=== PATIENT | female | born 1955 | race Caucasian/White ===

== ENCOUNTER 2016-09-17 09:08 | Emergency (ER) | payer BC ==
[~2016-09-17] VITALS: Ht 165.1 cm; Wt 70.0 kg
[2016-09-17] MEDS ORDERED: SODIUM CHLORIDE FLUSH 10 ML SYR IV PRN (09:30)
[2016-09-17] MEDS ORDERED: ALBUTEROL/IPRATROPIUM 3MG-0.5MG/3ML (DUONEB) NEB VIAL INH ONE (09:30)
[2016-09-17] MEDS ORDERED: SODIUM CHLORIDE FLUSH 3 ML SYR IV PRN (09:30)
[2016-09-17] MEDS ORDERED: methylPREDNISolone 125 MG (Solu-MEDROL) VIAL IV ONE (09:35)
[2016-09-17] MEDS ORDERED: NS IV 500 ML 500 ML IV SCH (09:35)
[2016-09-17 09:45] LABS: BASOPHILS % (AUTO) 1 % (0-2); EOSINOPHILS # (AUTO) 0.2 10^3uL; EOSINOPHILS % (AUTO) 3 % (0-4); LYMPHOCYTES # (AUTO) 1.7 X10^3; MEAN CORPUSCULAR HEMOGLOBIN 31.1 PG (26.0-34.0); MEAN CORPUSCULAR HGB CONC 35.4 g/dL (31.0-37.0); MEAN CORPUSCULAR VOLUME 88 FL (80-100); MEAN PLATELET VOLUME 9.8 FL (6.0-9.5); MONOCYTES # (AUTO) 0.5 X10^3; MONOCYTES % (AUTO) 9 % (3-11); NEUTROPHILS # (AUTO) 3.4 X10^3; NEUTROPHILS % (AUTO) 58 % (51-67); PLATELET COUNT 291 10^3uL (150-450); WHITE BLOOD COUNT 5.95 10^3uL (4.0-11.0)
[2016-09-17] MEDS ORDERED: ALBUTEROL 0.083% NEB SOLUTION 2.5 MG/3 ML VIAL INH ONE ×2 (09:50→09:53)
--- NOTE | 2016-09-17 09:50 | NUR ---
RT DOES 2ND RT TX CONTINUOUS FROM FIRST TX AFTER TALKING WITH DR CABRERA. CL
[2016-09-17 09:56] LABS: ALBUMIN 4.2 g/dL (3.4-5.0); ANION GAP 15.7 MEQ/L (3-15); TOTAL PROTEIN 7.1 g/dL (6.4-8.5)
[2016-09-17 11:23] VITALS: BP 118/58
== END 2016-09-17 11:36 | disposition home or self-care (01) ==
LOC: ED 09:10
DX: J98.8 Other specified respiratory disorders (principal); J44.9 Chronic obstructive pulmonary disease, unspecified; F17.219 Nicotine dependence, cigarettes, with unspecified nicotine-induced disorders
CPT/HCPCS: 36415; 71020; 80053; 85025; 85379; 86140; 87486; 87581; 87633; 87798; 94640; 96361; 96374; 99284; J2930; J7040; 99283

== ENCOUNTER 2016-11-04 00:17 | Emergency (ER) | payer BC ==
[~2016-11-04] VITALS: Ht 165.1 cm; Wt 74.2 kg
[~2016-11-04 00:17] MED LIST: ALBU8.5H4 INH; ALPR.25T PO; ASPI-345 PO; ATOR20TA PO; CITA20TA12 PO; DOXY-182 PO; FAMO-119 PO; FAMO40TA72 PO; FLUT1DIS3 INH; HYDR-3702 PO; HYDR-3754 PO; METH4TAB27 PO; OMEP20CA12 PO; ONDAN4ODT PO; PRED20TA PO; SERT100T PO; SERT100T8 PO; SINGULAR PO; SUCR1TAB29 PO
--- NOTE | 2016-11-04 00:18 | NUR ---
Pt presents to ER ambulatory with c/o right knee pain after falling this afternoon. Pt reports taking Ibuprofen and using ice but pain has become unbearable. Pt also has small abrasion on right wrist. Pt admitted to room 7.
--- OUTSIDE RECORDS SUMMARY | 2016-11-04 00:22 | XMS REPORT | Continuity of Care Document ---
Author Author [facility] Organization [facility] Address Unknown Phone Unavailable Support Name Relationship Address Phone NINA BURGESS MD Caregiver [address] [place] [address] GADIEL SAMSON Next Of Kin [place], [place] [address] Insurance Providers Payer Name Policy Number Subscriber Name Relationship [employer] [id number] Ysabel Tellez 19 Self / Same As Patient Problems Medical Problems Problem Onset Date Status Abdominal pain 08/29/2012 Active Nausea 08/29/2012 Active Microscopic hematuria 04/17/2013 Active Gastritis 09/03/2013 Resolved Cataract of left eye Unknown Active Medications Medication Dose Route Sig Days/Qty Instructions Order Date Discontinued Date Status Citalopram Hydrobromide 20 Mg ORAL DAILY 08/29/12 Active [Singular] 10 Mg ORAL DAILY 08/29/12 Active Aspirin 81 Mg ORAL DAILY 08/29/12 Active Fluticasone/Salmeterol 1 Puff RESPIRATORY (INHALATION) TWICE A DAY Active Albuterol Sulfate 2 Puff RESPIRATORY (INHALATION) NEEDED 08/29/12 Active Ondansetron Hcl 1 Tab ORAL EVERY 6 HOURS PRN 12 Qty 08/29/12 11/18/14 Discontinued Famotidine 1 Tab ORAL TWICE A DAY 12 Qty 08/29/12 11/18/14 Discontinued Hydrocodone Bit/Acetaminophen 1 Tab ORAL Q 4H PRN 10 Qty Pain 04/17/13 11/18/14 Discontinued Ondansetron Hcl 4 Mg ORAL EVERY 4HRS PRN 10 Qty 09/03/13 11/18/14 Discontinued Acetaminophen/Hydrocodone Bitart 1 Each ORAL EVERY 4HRS PRN 15 Qty 11/18/14 Discontinued Sucralfate 1 Gm ORAL 4X DAY BEFORE MEALS/AT BEDTIME 10 Days 09/03/13 11/18/14 Discontinued Famotidine 20 Mg ORAL TWICE A DAY 15 Days 09/03/13 11/18/14 Discontinued Social History No social history. Hospital Discharge Instructions No hospital discharge instructions. Plan of Care No plan of care. Functional Status No functional status results. Allergies, Adverse Reactions, Alerts Allergen Type Severity Reaction Status Last Updated Meperidine HCl Allergy Active 08/29/12 Sulfa(Sulfonamide Antibiotics) Allergy Active 08/29/12 Immunizations No immunization records. Vital Signs Acute Vital Signs Vital Response Date/Time Temperature (Fahrenheit) 98.0 Pulse 80 bpm Respirations 18 Height 5 ft 4 in Weight 152 lb Body Mass Index 26.1 kg/m^2 Results Test Source Date Result Interp. Ref. Range Comments Alanine Aminotransferase (ALT/SGPT) September 03, 2013 8:50am 24 U/L L 30- 65 Collected by nurse? N Albumin September 03, 2013 8:50am 4.2 G/DL N 3.4-5.0 Collected by nurse? N Albumin/Globulin Ratio September 03, 2013 8:50am 1.312 N 1.1-1.8 Collected by nurse? N Alkaline Phosphatase September 03, 2013 8:50am 68 U/L N 38-126 Collected by nurse? N Amylase Level September 03, 2013 8:50am 67 U/L N 25-115 Collected by nurse? N Aspartate Amino Transf (AST/SGOT) September 03, 2013 8:50am 28 U/L N 15- 37 Collected by nurse? N BUN/Creatinine Ratio September 03, 2013 8:50am 16 N 10-20 Collected by nurse? N Basophils # (Auto) September 03, 2013 8:50am 0.0 10^3/uL Collected by nurse? N Basophils (%) (Auto) September 03, 2013 8:50am 0 % N 0-2 Collected by nurse? N Blood Urea Nitrogen September 03, 2013 8:50am 11 MG/DL N 7-18 Collected by nurse? N Calcium Level September 03, 2013 8:50am 9.0 MG/DL N 8.8-10.8 Collected by nurse? N Calculated Osmolality September 03, 2013 8:50am 280 MOSM/L N 280-300 Collected by nurse? N Carbon Dioxide Level September 03, 2013 8:50am 30 MMOL/L H 22-29 Collected by nurse? N Chloride Level September 03, 2013 8:50am 106 MMOL/L N 98-108 Collected by nurse? N Creatinine September 03, 2013 8:50am 0.70 mg/dL N 0.6-1.2 Collected by nurse? N Eosinophils # (Auto) September 03, 2013 8:50am 0.3 10^3/uL Collected by nurse? N Eosinophils (%) (Auto) September 03, 2013 8:50am 3 % N 0-4 Collected by nurse? N Glucose Level September 03, 2013 8:50am 107 MG/DL DN 70-110 Collected by nurse? N Hematocrit September 03, 2013 8:50am 42.50 % N 35.00-45.00 Collected by nurse? N Hemoglobin September 03, 2013 8:50am 14.7 g/dL N 12.0-15.5 Collected by nurse? N Lipase September 03, 2013 8:50am 59 U/L N 23-300 Collected by nurse? N Lymphocytes # (Auto) September 03, 2013 8:50am 2.1 X 10^3 Collected by nurse? N Lymphocytes (%) (Auto) September 03, 2013 8:50am 27 % N 20-46 Collected by nurse? N Mean Corpuscular Hemoglobin September 03, 2013 8:50am 31.7 PG N 26.0-34.0 Collected by nurse? N Mean Corpuscular Hemoglobin Concent September 03, 2013 8:50am 34.6 g/dL N 31.0-37.0 Collected by nurse? N Mean Corpuscular Volume September 03, 2013 8:50am 92 FL N 80-100 Collected by nurse? N Mean Platelet Volume September 03, 2013 8:50am 9.7 FL H 6.0-9.5 Collected by nurse? N Monocytes # (Auto) September 03, 2013 8:50am 0.5 X 10^3 Collected by nurse? N Monocytes (%) (Auto) September 03, 2013 8:50am 7 % N 3-11 Collected by nurse? N Neutrophils # (Auto) September 03, 2013 8:50am 4.7 X 10^3 Collected by nurse? N Neutrophils (%) (Auto) September 03, 2013 8:50am 62 % N 51-67 Collected by nurse? N Platelet Count September 03, 2013 8:50am 304 10^3/uL N 150-450 Collected by nurse? N Potassium Level September 03, 2013 8:50am 4.1 MMOL/L N 3.5-5.1 Collected by nurse? N Red Blood Count September 03, 2013 8:50am 4.64 10^6/uL N 4.00-5.00 Collected by nurse? N Red Cell Distribution Width September 03, 2013 8:50am 12.1 % N 11.8-15.6 Collected by nurse? N Sodium Level September 03, 2013 8:50am 145 MMOL/L DN 135-150 Collected by nurse? N Total Bilirubin September 03, 2013 8:50am 0.9 MG/DL DN 0.1-1.0 Collected by nurse? N Total Protein September 03, 2013 8:50am 7.4 G/DL N 6.4-8.5 Collected by nurse? N Troponin I September 03, 2013 8:50am < 0.012 ng/mL 0.010-0.080 Collected by nurse? N Urine Bacteria September 03, 2013 8:50am None seen /HPF Collected by nurse? NUrine collection method Clean Catch Urine Bilirubin September 03, 2013 8:50am Negative Negative Collected by nurse? NUrine collection method Clean Catch Urine Blood September 03, 2013 8:50am 2+ H Negative Collected by nurse? NUrine collection method Clean Catch Urine Clarity September 03, 2013 8:50am Clear Collected by nurse? NUrine collection method Clean Catch Urine Collection Type September 03, 2013 8:50am Clean catch Collected by nurse? NUrine collection method Clean Catch Urine Color September 03, 2013 8:50am Yellow Collected by nurse? NUrine collection method Clean Catch Urine Glucose (UA) September 03, 2013 8:50am Negative Negative Collected by nurse? NUrine collection method Clean Catch Urine Ketones September 03, 2013 8:50am Negative Negative Collected by nurse? NUrine collection method Clean Catch Urine Leukocyte Esterase September 03, 2013 8:50am Negative Negative Collected by nurse? NUrine collection method Clean Catch Urine Mucus April 17, 2013 4:20pm 1+ Urine collection method Clean Catch Urine Nitrite September 03, 2013 8:50am Negative Negative Collected by nurse? NUrine collection method Clean Catch Urine Protein September 03, 2013 8:50am Negative Negative Collected by nurse? NUrine collection method Clean Catch Urine RBC September 03, 2013 8:50am 5-10 /HPF H Collected by nurse? NUrine collection method Clean Catch Urine Specific [place] September 03, 2013 8:50am 1.025 1.005-1.030 Collected by nurse? NUrine collection method Clean Catch Urine Squamous Epithelial Cells September 03, 2013 8:50am 2-5 /LPF Collected by nurse? NUrine collection method Clean Catch Urine Urobilinogen September 03, 2013 8:50am 1.0 mg/dL 0.2-1.0 Collected by nurse? NUrine collection method Clean Catch Urine WBC September 03, 2013 8:50am None seen /HPF Collected by nurse ? NUrine collection method Clean Catch Urine pH September 03, 2013 8:50am 6.0 5.0 - 8.0 Collected by nurse? NUrine collection method Clean Catch White Blood Count September 03, 2013 8:50am 7.64 10^3/uL N 4.0-11.0 Collected by nurse? N Volume Urine Centrifuged September 03, 2013 8:50am 10 ml Collected by nurse? NUrine collection method Clean Catch Estimat Glomerular Filtration Rate September 03, 2013 8:50am 104.4 Collected by nurse? N Estimated GFR (Non- September 03, 2013 8:50am 86.3 Collected by nurse? N Calcium/Ionized Calcium Ratio September 03, 2013 8:50am 4.00 mg/dL Collected by nurse? N Procedures No known history of procedures.
--- OUTSIDE RECORDS SUMMARY | 2016-11-04 00:22 | XMS REPORT | Continuity of Care Document ---
Author Author [facility] Organization [facility] Address Unknown Phone Unavailable Support Name Relationship Address Phone NINA BURGESS MD Caregiver [address] [place] [address] GADIEL SAMSON Next Of Kin [place], [place] [address] Insurance Providers Payer Name Policy Number Subscriber Name Relationship [employer] [id number] Ysabel Tellez 19 Self / Same As [...] NUrine collection method Clean Catch Urine Specific [place] September 03, 2013 8:50am 1.025 1.005-1.030 Collected [...]
[2016-11-04] MEDS ORDERED: KETOROLAC 60 MG/2 ML (TORADOL) VIAL IM ONE (00:50)
--- NOTE | 2016-11-04 00:58 | NUR ---
Administered Toradol 60 mg IM left gluteus. Pt tolerated well. Resting with pillow under knee for comfort. Xrays taken already. Will continue to monitor.
[2016-11-04] MEDS ORDERED: ED- HYDROcodone/ACETAMINOPHEN 5MG/325MG (NORCO) 6 TABLETS/BTL PO ONE (01:15)
[2016-11-04] MEDS ORDERED: HYDR-3702 PO (01:17)
--- NOTE | 2016-11-04 01:34 | NUR ---
Pt dismissed to home. Pt taken to POV via wheelchair by RN. Instructions provided. Pt stated her understanding. Prepack of [place] 5 given along with dosing instructions and prescription. Knee immobilizer applied to right knee. Pt stated her knee felt better already. Denied other needs or questions.
[2016-11-04 01:43] VITALS: BP 117/56
--- NOTE | 2016-11-04 07:55 | Diagnostic Imaging Report ---
INDICATION: Pain. FINDINGS: 3-view right knee reveals no fracture, dislocation, or acute-appearing articular incongruity. IMPRESSION: No acute-appearing abnormality. Dictated by: Dictated on workstation # [id number]
== END 2016-11-04 01:34 | disposition home or self-care (01) ==
LOC: ED 00:18
DX: S83.91XA Sprain of unspecified site of right knee, initial encounter (principal); W10.2XXA Fall (on)(from) incline, initial encounter; Y92.008 Other place in unspecified non-institutional (private) residence as the place of occurrence of the external cause
CPT/HCPCS: 73562; 96372; 99283; J1885

== ENCOUNTER → 2016-11-09 | Outpatient (CLI) | payer BC ==
--- NOTE | 2016-11-09 14:06 | Diagnostic Imaging Report ---
PROCEDURE: US Carotid Duplex Bilateral. TECHNIQUE: Multiple real-time grayscale images were obtained over the carotid arteries in various projections bilaterally. Additional duplex Doppler and color Doppler images were also obtained. INDICATION: Headaches. Near syncope. Chest pain. The patient is a smoker. FINDINGS: There is mild soft plaquing noted within the internal carotid arteries bilaterally. This is not causing hemodynamic change. Stenosis is felt to be less than 30% bilaterally. Color Doppler imaging shows normal antegrade flow throughout the carotid and vertebral arteries bilaterally. Doppler sampling shows normal waveforms and normal peak velocities. Carotid ratios appear normal bilaterally. IMPRESSION: [id number] atherosclerotic plaquing within the internal carotid arteries with no hemodynamic changes. Stenosis is estimated less than 30%. Dictated by: Dictated on workstation # [id number]
== END ==
LOC: RAD 12:10
PROVIDERS: ATTEND Physician Assistant Surgical
DX: R07.89 Other chest pain (principal); R51 Headache; I65.23 Occlusion and stenosis of bilateral carotid arteries
CPT/HCPCS: 93306; 93880